=== PATIENT | female | born 1985 | race Caucasian/White ===

== ENCOUNTER 2019-10-09 21:09 | Outpatient (CLI) | payer OTHER ==
[~2019-10-09] VITALS: Ht 160 cm; Wt 75.9 kg
[2019-10-09] MEDS ORDERED: ASPI81TA45 PO (21:33)
[2019-10-09] MEDS ORDERED: ACET325C6 PO (21:33)
[2019-10-09] MEDS ORDERED: FOLI0.8T2 PO (21:33)
[2019-10-09] MEDS ORDERED: CALC-112 PO (21:33)
[2019-10-09] MEDS ORDERED: CHOL300T PO (21:33)
[2019-10-09] MEDS ORDERED: PREN-3 PO (21:33)
[2019-10-09 21:46] VITALS: BP 123/69
[2019-10-09 21:51] LABS: BASOPHILS # (AUTO) 0.01 x10^3/uL (0-0.1); BASOPHILS % (AUTO) 0 % (0-1); EOSINOPHILS # (AUTO) 0.02 x10^3/uL (0-0.4); EOSINOPHILS % (AUTO) 0 % (1-7); LYMPHOCYTES # (AUTO) 1.05 x10^3/uL (1-3.4); LYMPHOCYTES % (AUTO) 10 % (22-44); MD NO; MEAN CORPUSCULAR HEMOGLOBIN 33.4 pg (27.0-34.8); MEAN CORPUSCULAR HGB CONC 35.1 g/dL (32.4-35.8); MEAN CORPUSCULAR VOLUME 95.1 fL (80-100); MEAN PLATELET VOLUME 7.6 fL (7.4-10.4); MONOCYTES # (AUTO) 0.56 x10^3/uL (0.2-0.8); MONOCYTES % (AUTO) 5 % (2-9); NEUTROPHILS # (AUTO) 8.67 x10^3/uL (1.8-6.8); NEUTROPHILS % (AUTO) 84 % (42-75); PLATELET COUNT 206 x10^3/uL (130-400); RED BLOOD COUNT 3.71 x10^6/uL (3.82-5.3); RED CELL DISTRIBUTION WIDTH 12.6 % (9.6-15.2)
[2019-10-09 21:53] LABS: ALANINE AMINOTRANSFERASE 10 U/L (12-78); ALBUMIN 2.6 g/dL (3.4-5.0); ANION GAP 7 mmol/L (5-15); CALCIUM 8.3 mg/dL (8.5-10.1); CHLORIDE 108 mmol/L (98-107); CREATININE 0.63 mg/dL (0.55-1.02)
[2019-10-09 21:55] LABS: ALKALINE PHOSPHATASE 61 U/L (45-117); BILIRUBIN,TOTAL 0.3 mg/dL (0.2-1.0); TOTAL PROTEIN 5.9 g/dL (6.4-8.2)
[2019-10-09 21:55] LABS: MICROSCOPIC NOT IND
[2019-10-09 21:57] LABS: ACETONE, SERUM Trace (10mg/dL) mg/dL (Negative)
[2019-10-09] MEDS ORDERED: LACTATED RINGERS 1,000 ML IVBOLUS ONE (23:00)
== END 2019-10-09 23:40 | disposition home or self-care (01) ==
LOC: LDOP 21:09
PROVIDERS: ATTEND Obstetrics & Gynecology Maternal & Fetal Medicine
DX: O24.012 Pre-existing type 1 diabetes mellitus, in pregnancy, second trimester (principal); Z3A.24 24 weeks gestation of pregnancy
CPT/HCPCS: 36415; 59025; 80053; 81003; 82010; 85025; 87086; 96360; 99211; J7120; G0463

== ENCOUNTER 2019-11-27 22:20 | Outpatient (CLI) | payer OTHER ==
[~2019-11-27] VITALS: Ht 160 cm; Wt 86.8 kg
[~2019-11-27 22:20] MED LIST: ACET325C6 PO; ASPI81TA45 PO; CALC-112 PO; CHOL300T PO; FOLI0.8T2 PO; PREN-3 PO
[2019-11-27 22:59] LABS: MICROSCOPIC INDICATED
[2019-12-02] MEDS ORDERED: OMEP20TA62 PO (08:13)
[2019-12-02] MEDS ORDERED: NITR100C56 PO (08:14)
[2019-12-06] MEDS ORDERED: DOCU-131 PO (10:31)
[2019-12-06] MEDS ORDERED: ACET325T14 PO (10:32)
[2019-12-06] MEDS ORDERED: IBUP200T49 PO (10:33)
[2019-12-06] MEDS ORDERED: OXYC-302 PO (10:34)
== END 2019-11-28 00:35 | disposition home or self-care (01) ==
LOC: LDOP 22:20
PROVIDERS: ATTEND Obstetrics & Gynecology Maternal & Fetal Medicine
DX: O09.523 Supervision of elderly multigravida, third trimester (principal); O60.03 Preterm labor without delivery, third trimester; O24.013 Pre-existing type 1 diabetes mellitus, in pregnancy, third trimester; E10.9 Type 1 diabetes mellitus without complications; R10.9 Unspecified abdominal pain; Z3A.31 31 weeks gestation of pregnancy
CPT/HCPCS: 59025; 76817; 81001; 87086; 99211; G0463

== ENCOUNTER → 2020-07-26 | Outpatient (CLI) | payer OTHER ==
[~2020-07-26] MED LIST changes: +ACET325T14 PO; +DOCU-131 PO; +IBUP200T49 PO; +NITR100C56 PO; +OMEP20TA62 PO; +OXYC-302 PO
[2020-07-26 08:27] LABS: ALBUMIN 3.9 g/dL (3.4-5.0); ANION GAP 6 mmol/L (5-15); CALCIUM 8.9 mg/dL (8.5-10.1); CHLORIDE 107 mmol/L (98-107)
[2020-07-26 08:35] LABS: ALANINE AMINOTRANSFERASE 15 U/L (12-78); ALKALINE PHOSPHATASE 81 U/L (45-117); BILIRUBIN,TOTAL 0.7 mg/dL (0.2-1.0); CHOL/HDL RATIO 2.1; CHOLESTEROL, TOTAL 175 mg/dL (140-239); CREATININE 0.82 mg/dL (0.55-1.02); FREE T4 (FREE THYROXINE) 1.01 ng/dL (0.76-1.46); HDL CHOL % 49 % (28-40); HDL CHOLESTEROL (DIRECT) 85 mg/dL (40-60); LDL CHOLESTEROL,CALCULATED 78 mg/dL (54-169); LDL/HDL RATIO 0.9 (0.5-3.0); TOTAL PROTEIN 7.7 g/dL (6.4-8.2); TRIGLYCERIDES 60 mg/dL (50-200); VLDL CHOLESTEROL 12 mg/dL (0-25)
== END | disposition home or self-care (01) ==
LOC: LAB 07:30
PROVIDERS: ATTEND Physician Assistant Medical
DX: E10.10 Type 1 diabetes mellitus with ketoacidosis without coma (principal)
CPT/HCPCS: 36415; 80053; 80061; 82043; 82570; 84439; 84443; 84681